=== PATIENT | male | born 1970 | race Hispanic/Latino ===

== ENCOUNTER 2021-07-01 03:31 | Emergency (ER) | payer OTHER, SELFPAY ==
[2021-07-01 03:35] VITALS: BP 189/106; PULSE 89; RESP 17; TEMP 37.1; O2SAT 99; BMI 29.3
--- NOTE | 2021-07-01 03:47 | ED.WOUNDLAC ---
HPI - Wound/Laceration General Chief Complaint: Wound/Laceration Stated Complaint: deep cut on left thumb Time Seen by Provider: 07/01/21 03:47 Source: patient Mode of arrival: Ambulatory History of Present Illness HPI narrative: Patient is a 42-year-old male here for evaluation of a cut to his left thumb. It occurred at work this past evening when he caught it in a piece of machinery. He covered it with a bandage in came to the emergency department for evaluation. Related Data Allergies Allergy/AdvReac Type Severity Reaction Status Date / Time No Known Drug Allergies Allergy Verified 07/01/21 03:41 Review of Systems Musculoskeletal Musculoskeletal: Reports system reviewed and no additional complaints, except as documented Integumentary/Breasts Skin/Breast: Reports system reviewed and no additional complaints, except as documented Hematologic/Lymphatic On Anticoagulants: No Patient History Medical History Healthy adult Social History Smoking Status: Current some day smoker Smoking Status: Current some day smoker tobacco type: cigarettes alcohol intake frequency: a few times a month Substance Use Type: does not use Exam Initial Vital Signs Initial Vital Signs: Vital Signs Temperature 98.7 F 07/01/21 03:35 Pulse Rate 89 07/01/21 03:35 Respiratory Rate 17 07/01/21 03:35 Blood Pressure 189/106 H 07/01/21 03:35 Pulse Oximetry 99 07/01/21 03:35 Cardio Pulses: radial pulses present on the left Skin Other: Patient with a cut to the he medial aspect of the thumb along the thumb nail. It is not actively bleeding. It is more of an appearance of a gown show/avulsion rather than a linear laceration. There is no nail involvement. Neuro Sensory Exam: no sensory deficits noted Extrem Other: There is no nail involvement to the left thumb. Course Orders Ordered: Discontinued Medications Bacitracin (Bacitracin Oint 0.9 Gm Pckt) 1 applic TOP NOW ONE Stop: 07/01/21 03:48 Vital Signs Vital signs: Vital Signs - 8 hr 07/01/21 03:35 Temperature 98.7 F Pulse Rate 89 Respiratory Rate 17 Blood Pressure 189/106 H Pulse Oximetry 99 MDM - Wound/Laceration MDM Narrative Medical decision making narrative: The cut to the medial aspect of the left thumb does not involve the nail or nail bed. It is approximately 1 cm in length. It is more of a gouge/avulsion rather than a linear cut. Not amenable to suturing here in the emergency department. Will cover the area with antibiotic ointment and a bandage. Patient asks for 1 week off work however I do not feel this is necessary. Will provide 1 day off work and have any further time off needed will need that either come from his primary doctor or [facility] providers. Discharge Plan Departure Patient Disposition: Home Clinical Impression: Laceration Instructions: DI for Minor Laceration Activity Restrictions/Additional Instructions: Unfortunately the cut that you sustained is not amenable to suturing. This will heal on its own. Just keep it covered with an antibiotic ointment and a bandage. If needed you can use a glove at work to keep your hand dry. Return emergency department for any new or worsening symptoms Stand Alone Forms: Work Release Note
[2021-07-01] MEDS: BACITRACIN OINT 0.9 GM PCKT 1 APPLIC TOP (03:52)
== END 2021-07-01 04:11 | disposition home or self-care (01) ==
PROVIDERS: Emergency Provider Emergency Medicine
DX: S61.012A Laceration without foreign body of left thumb without damage to nail, initial encounter (principal); F17.210 Nicotine dependence, cigarettes, uncomplicated; W45.8XXA Other foreign body or object entering through skin, initial encounter; Y99.0 Civilian activity done for income or pay
CPT/HCPCS: 99282; 99283

== ENCOUNTER 2022-04-28 12:30 | Emergency (ER) | payer SELFPAY ==
[2022-04-28 13:03] VITALS: BP 186/102; PULSE 76; RESP 18; TEMP 36.4; O2SAT 97; BMI 35.2
[2022-04-28 15:23] VITALS: BP 171/95
[2022-04-28 17:58] VITALS: BP 190/103
[2022-04-28 17:59] VITALS: PULSE 68; O2SAT 98
[2022-04-28 18:00] VITALS: BP 175/94; PULSE 66; O2SAT 98
[2022-04-28 18:11] VITALS: BP 175/98; PULSE 68; O2SAT 98
--- NOTE | 2022-04-28 18:11 | ED.UPPEXIN ---
HPI - Extremity Injury (Upper) General Chief Complaint: Extremity Injury, Upper Stated Complaint: R Hand thumb numbness/pain- started Time Seen by Provider: 04/28/22 12:44 Source: patient Mode of arrival: Ambulatory History of Present Illness HPI narrative: Patient is a 51-year-old male presents to the emergency room today with a complaint of right hand pain numbness and weakness that started on of last week. 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 Thinks that he may have some form of frostbite to his hand. Denies any trauma to the hand states the hand is sore and feels weak. Would like to change job and not work in an area where he has used his hands a as much and would like to return to work on Saturday of next week. Main concern today is getting a note for work. This document was made in part using voice recognition software. ?While efforts were made to proof read this document, sound alike grammatical and other misinterpreted voice command errors may occur. Related Data Allergies Allergy/AdvReac Type Severity Reaction Status Date / Time No Known Drug Allergies Allergy Verified 07/01/21 03:41 Review of Systems Review of Systems Narrative: R.O.S.: General: No fever, chills or fatigue. Cardiovascular: No chest pain or palpitations Respiratory: No S.O.B. HEENT: No congestion, ear pain, rhinorrhea, sore throat or tinnitus Gastrointestinal: No nausea or vomiting : No urinary concerns Skin: No rash or associated abnormalities Musculoskeletal: Patient has pain numbness weakness to the right hand.. ?? Neurological: Awake, alert and in not apparent distress. No Headaches, changes in vision or other related neurological concerns. Patient History Medical History Healthy adult Social History Smoking Status: Current some day smoker Smoking Status: Current some day smoker tobacco type: cigarettes alcohol intake frequency: a few times a month Substance Use Type: does not use Exam Narrative Exam Narrative: Physical Exam: ? General: normal appearance, well developed, well nourished, alert, and awake. Not in acute distress. ? Head: Normocephalic, no lesions. Chest: Lungs CTAB, no rales, rhonchi or wheezes. ?? Heart: RRR, no murmurs, rubs or gallops. Eyes: PERRLA, EOM's full, conjunctivae clear. ? Neuro: Physiological, no localizing findings, CN3-12 intact. ?? Extremities: Patient's right hand has intact sensation to touch good strength and range of motion and good capillary refill. ? Skin: Normal, no rashes, no lesions noted. ?? PSYCHIATRIC: The mood is good, no blunted affect. Speech is clear. Thought process is linear, thought content is appropriate. The voice is without significant inflection. Gastrointestinal: Soft; NT; ND; Pos BS with Neg. rebound tenderness. No scars or major deformities noted on Visual Inspection. Initial Vital Signs Initial Vital Signs: Vital Signs Temperature 97.5 F L 04/28/22 13:03 Pulse Rate 76 04/28/22 13:03 Respiratory Rate 18 04/28/22 13:03 Blood Pressure 186/102 H 04/28/22 13:03 Pulse Oximetry 97 04/28/22 13:03 Oxygen Delivery Method 04/28/22 13:03 Course Vital Signs Vital signs: Vital Signs - 8 hr 04/28/22 13:03 04/28/22 15:23 Temperature 97.5 F L Pulse Rate 76 Respiratory Rate 18 Blood Pressure 186/102 H 171/95 H Pulse Oximetry 97 Oxygen Delivery Method Room Air MDM - Extremity Injury (Upper) MDM Narrative Medical decision making narrative: Patient is a 51-year-old male with complaint of right hand pain weakness and numbness starting on . Patient denies any trauma to the hand through the interview states that he really would like to have a different job and does not want to report to work until Saturday of next week. History and physical exam was unremarkable for any urgent emergent concerns at this time. Patient advised to refrain from any over strongly feels that his right hand. Note written for patient patient advised to follow with primary care provider should this condition continued. Discharge Plan Departure Patient Disposition: Home Clinical Impression: Numbness of right hand, Right hand weakness, Hand pain, right Instructions: DI for Numbness/Tingling, DI for Hand Pain Activity Restrictions/Additional Instructions: *You have been diagnosed with right hand pain weakness and numbness suspected secondary to overuse. Physical exam and history does not warrant any further diagnostics or hand. I suggest you follow-up with your primary care provider for any nonemergent concerns. She will return to the emergency room if any emergent concerns. [ ] *What to do: *Please continue to take your regular medications as directed. [ ] New medication prescriptions sent to your pharmacy: [ ] [ ] New medication written as a paper prescription [x] No new medications given *Please follow up with your primary care provider in 2-3 days, call for an appointment. Let them know you were seen in the Emergency Department and that we ask that you be seen in follow up. We will electronically transmit a record of today's note if your PCP is in our system *If you do not have a primary care provider please contact the [facility] Resource line at [phone]. They will ask some questions about your medical history and help get you set up with a doctor in the community. *Return to Emergency Department if you should have any new, worsening or concerning symptoms, such as [fever greater than 101 F, shaking chills, worsening pain, persistent vomiting or other bothersome symptoms] Stand Alone Forms: Work Release Note Visit Report Forms: Patient Portal/API
== END 2022-04-28 18:35 | disposition home or self-care (01) ==
PROVIDERS: Emergency Provider Physician Assistant
DX: R20.0 Anesthesia of skin (principal); R29.898 Other symptoms and signs involving the musculoskeletal system; M79.641 Pain in right hand
CPT/HCPCS: 99281